=== PATIENT | female | born 1970 | race Caucasian/White ===

== ENCOUNTER 2023-07-22 19:11 | Emergency (ER) | payer SELFPAY ==
[~2023-07-22] VITALS: Ht 172.7 cm; Wt 68.0 kg
[~2023-07-22 19:11] MED LIST: CORTISPORIN SUS10 ML OT
[2023-07-22] MEDS ORDERED: ASPIRIN ADULT L81 M2 PO (19:47)
[2023-07-22] MEDS ORDERED: NOVOLOG MIX 70/33 ML SC (19:47)
[2023-07-22 19:49] VITALS: BP 152/89
== END 2023-07-22 21:05 | disposition home or self-care (01) ==
LOC: ED 19:11
DX: S01.01XA Laceration without foreign body of scalp, initial encounter (principal); E11.9 Type 2 diabetes mellitus without complications; W01.10XA Fall on same level from slipping, tripping and stumbling with subsequent striking against unspecified object, initial encounter; Y93.89 Activity, other specified; Y92.481 Parking lot as the place of occurrence of the external cause; Y99.8 Other external cause status

== ENCOUNTER → 2023-08-06 | Emergency (ER) | payer SELFPAY ==
[~2023-08-06] VITALS: Ht 167.6 cm; Wt 70.3 kg
[~2023-08-06] MED LIST changes: +ASPIRIN ADULT L81 M2 PO; +NOVOLOG MIX 70/33 ML SC
[2023-08-06 17:00] VITALS: BP 171/91
== END ==
LOC: ED 16:44
DX: S01.01XD Laceration without foreign body of scalp, subsequent encounter (principal); E10.9 Type 1 diabetes mellitus without complications; X58.XXXD Exposure to other specified factors, subsequent encounter